=== PATIENT | female | born 1985 | race Caucasian/White ===

== ENCOUNTER 2024-04-03 21:57 | Emergency (ER) | payer OTHER, SELFPAY ==
--- NOTE | ~2024-04-03 | CT_ITS ---
EXAMINATION: CT abdomen pelvis wo con DATE: 04/03/2024 23:25 INDICATION: Left flank pain. TECHNIQUE: Computed tomography (CT) of the abdomen and pelvis was performed without intravenous contr ast. Automated exposure control and iterative reconstruction technique were employed. The dose-length product was 760.09 mGy-cm. COMPARISON: None FINDINGS: Lung bases are clear. Heart size is normal. No pericardial or pleural effusion. Liver, spleen, pancre as and bilateral adrenal glands are normal. Gradients likely layering sludge in the otherwise normal gallbladder. Right kidney and ureter are normal with no urolithiasis or hydronephrosis. There is a 3 mm obstructing stone at the left ureterovesicular junction which results in mild left hydroureteronep hrosis. No other urolithiasis. There are multiple phleboliths in the pelvis the largest measuring 506 mm located immediately posterior to the stomach the left ureterovesicular junction. Bladder is brad l. Uterus and bilateral adnexa are unremarkable. Bowels including the appendix are normal. No free in traperitoneal gas or fluid. No pathologically enlarged abdominal or pelvic lymphadenopathy. Bones are unremarkable. IMPRESSION: 1. Obstructing 3 mm stone at the left ureterovesicular junction with mild left hydroureteronephrosis. Reviewed, dictated and finalized at location A.
[2024-04-03 21:58] VITALS: BP 147/98; PULSE 121; RESP 18; TEMP 36; O2SAT 99
[2024-04-03 22:13] LABS: Basophils Percent Auto 0.3 % (0.2-1.2); Eosinophils Absolute Auto 0.2 K/mm3 (0-0.3); Eosinophils Percent Auto 1.3 % (0-4.4); Hematocrit 42.7 % (37.0-47.0); Hemoglobin 14.2 g/dL (12.0-15.0); Immature Granulocyte Absolute 0.05 K/mm3 (0.00-0.031); Immature Granulocyte Percent A 0.4 % (0-0.5); Lymphocytes Absolute Auto 4.53 K/mm3 (0.9-3.2); Mean Corpuscular HGB Conc 33.3 g/dl (32-36); Mean Corpuscular Hemoglobin 29.1 pg (26-34); Mean Corpuscular Volume 87.5 fl (80-100); Mean Platelet Volume 9.2 fl (7.4-10.4); Monocytes Absolute Auto 1.2 K/mm3 (0.1-0.6); Monocytes Percent Auto 9.3 % (2.6-8.5); Neutrophils Percent Auto 53.7 % (45.5-73.1); Platelet Count Result 339 k/mm3 (150-375); Red Blood Count 4.88 M/mm3 (4.2-5.4); Red Cell Distribution Width 13.8 % (11.5-14.5); White Blood Count 12.9 K/mm3 (4.5-10.0)
[2024-04-03 22:23] LABS: Alanine Aminotransferase 14 U/L (6-35); Albumin Level 4.6 g/dL (3.5-5.1); Alkaline Phosphatase 141 U/L (38-126); Anion Gap 13 mmol/L (4-12); Aspartate Amino Transferase 21 U/L (14-36); Bilirubin,Total 0.3 mg/dL (0.2-1.3); Blood Urea Nitrogen 14 mg/dL (7-17); Carbon Dioxide 14 mmol/L (22-30); Chloride 109 mmol/L (98-107); Estimated CRCL calculation 121 ml/min; Estimated Glomerular Filt Rate > 60; Glucose 165 mg/dL (65-110); Potassium 4.1 mmol/L (3.4-5.0); Sodium 136 mmol/L (137-145)
[2024-04-03] MEDS: MORPHINE SULFATE (*CRX) 4 MG/ML INJ IV PUSH (22:29)
[2024-04-03] MEDS: SODIUM CHLORIDE 0.9% IV 1,000 ML 999 ML IV CONT (22:29)
[2024-04-03] MEDS: ONDANSETRON INJ 4 MG/2 ML VIAL IV PUSH (22:29)
--- NOTE | 2024-04-03 22:35 | PC.NURSE ---
Patient keeps moving due to pain. Patient accidently pulled out her IV in her left AC. A new 18g IV in the right AC was placed.
--- NOTE | 2024-04-03 22:49 | PC.NURSE ---
Patient states that the morphine is not working and her pain is still 10/10. Notified EDP Dr. Anderson who VRBO 1mg Dilaudid IVP.
[2024-04-03] MEDS: HYDROmorphone HCL INJ (*CRX) 1 MG/ML SYR IV PUSH ×2 (22:51→23:51)
[2024-04-03 23:14] VITALS: BP 115/97; PULSE 80; RESP 16; O2SAT 100
--- NOTE | 2024-04-03 23:36 | PC.NURSE ---
Patient stated that her pain was 10/10 again and she was beginning to feel nauseous again. Notified EDP Dr. Anderson.
[2024-04-03] MEDS: METOCLOPRAMIDE HCL INJ 10 MG/2 ML VIAL IV PUSH (23:51)
[2024-04-03] MEDS: diphenhydrAMINE HCl INJ 50 MG/ML VIAL 25 MG IV PUSH (23:51)
[2024-04-04] MEDS: KETOROLAC 15 MG/ML VIAL (*BKC) IV PUSH (00:14)
--- NOTE | 2024-04-04 00:23 | ED.ABDPAIN ---
HPI - Abdominal Pain General Chief Complaint: Abdominal Pain Stated Complaint: kidney stone Time Seen by Provider: 04/03/24 22:22 History of Present Illness HPI narrative: pt here with n/v, L flank pain, sudden onset tonight. h/o kidney stones but not for 20 years. Related Data Allergies Allergy/AdvReac Type Severity Reaction Status Date / Time ibuprofen Allergy Itching Verified 04/03/24 22:28 Review of Systems Review of Systems: All systems reviewed & are unremarkable except as noted in HPI and below Exam Narrative: EXAMINATION OF ORGAN SYSTEMS/BODY AREAS: Constitutional: Vital signs per nursing GENERAL: Bent over, heaving into a bag, appears extremely uncomfortable HEAD: Normal with no signs of head trauma. EYES: EOMI, conjunctiva normal ENT: Hearing grossly intact LUNGS: Nonlabored breathing. HEART: [Regular rate and rhythm] ABD: Some left CVA tenderness EXT: Normal range of motion SKIN: [No rashes or lesions.] NEURO: [Alert and oriented x 3. No gross focal sensory or strength deficits.] Course Vital Signs Vital signs: Vital Signs Temperature 96.8 F L 04/03/24 21:58 Pulse Rate 121 H 04/03/24 21:58 Respiratory Rate 18 04/03/24 21:58 Blood Pressure 147/98 H 04/03/24 21:58 Pulse Oximetry 99 04/03/24 21:58 Oxygen Delivery Room Air 04/03/24 21:58 Temperature 96.8 F L 04/03/24 21:58 Pulse Rate 82 04/04/24 00:35 Respiratory Rate 16 04/04/24 00:35 Blood Pressure 143/114 H 04/04/24 00:35 Pulse Oximetry 99 04/04/24 00:35 Oxygen Delivery Room Air 04/03/24 21:58 MDM - Abdominal Pain MDM Narrative Medical decision making narrative: ED COURSE AND MEDICAL DECISION MAKIN-year-old female presenting to the emergency department for acute flank pain, symptoms are concerning for likely renal colic. Urinalysis is ordered. IV Morphine and 2 doses of Dilaudid are ordered given patient's persistent pain. IV fluids started. CT scan of the abdomen/pelvis is ordered. Labs are remarkable for: Bloody urine without signs of infection. CT scan of the abdomen/pelvis is reviewed by myself and interpreted by radiology: UVJ stone left 3 mm. On reevaluation, the patient still having pain. Since the stone is distal, I did give Toradol, and on re-evaluation patient states that she feels much better, pain is tolerable, I did offer admission for pain control and possible intervention at this time however patient states she feels she would rather go home at this time. Patient is strongly advised to return to the emergency department for any increasing pain not improving with medications, persistent nausea vomiting, fevers or chills or for any other concerns. Patient is comfortable with this plan and was discharged in fair condition. Lab Data 04/03/24 22:08 04/03/24 22:08 Labs: Lab Results 04/03/24 04/04/24 Range/Units 22:08 00:16 WBC 12.9 H (4.5-10.0) K/mm3 RBC 4.88 (4.2-5.4) M/mm3 Hgb 14.2 (12.0-15.0) g/dL Hct 42.7 (37.0-47.0) % MCV 87.5 (80-100) fl MCH 29.1 (26-34) pg MCHC 33.3 (32-36) g/dl RDW 13.8 (11.5-14.5) % Plt Count 339 (150-375) k/mm3 MPV 9.2 (7.4-10.4) fl Immature Gran % (Auto) 0.4 (0-0.5) % Neut % (Auto) 53.7 (45.5-73.1) % Lymph % (Auto) 35.0 (18.3-44.2) % [place] % (Auto) 9.3 H (2.6-8.5) % Eos % (Auto) 1.3 (0-4.4) % Baso % (Auto) 0.3 (0.2-1.2) % Lymph # (Auto) 4.53 H (0.9-3.2) K/mm3 [place] # (Auto) 1.2 H (0.1-0.6) K/mm3 Eos # (Auto) 0.2 (0-0.3) K/mm3 Baso # (Auto) 0.0 (0.0-0.1) K/mm3 Abs Immat Gran (auto) 0.05 H (0.00-0.031) K/mm3 Absolute Neuts (auto) 7.0 H (1.3-6.7) K/mm3 Absolute Nucleated RBC 0.000 (0.0-0.012) K/mm3 Nucleated RBC % 0.0 (0.0-0.2) % Sodium 136 L (137-145) mmol/L Potassium 4.1 (3.4-5.0) mmol/L Chloride 109 H (98-107) mmol/L Carbon Dioxide 14 L (22-30) mmol/L Anion Gap 13 H (4-12) mmol/L BUN 14 (7-
[2024-04-04 00:25] LABS: Appearance Urine Clear (Clear); Bacteria Urine None Seen /hpf; Bilirubin Urine Negative (Negative); Blood Urine 3+ (Negative); Color Urine Yellow (Yellow); Glucose Urine UA Negative (Negative); Ketones Urine Negative (Negative); Leukocyte Esterase Ur Negative LEU/UL (Negative); Nitrate Urine Negative (Negative); Non Pathogenic Casts 0-2; Protein Urine Negative (Negative); RBC Urine >100 /hpf (0-2); Squamous Epithelial Cell Urine None Seen /hpf (Few); Urobilinogen Urine 0.2 mg/dL (<2.0); WBC Urine 0-5 /hpf (0-3); pH Urine 6.5 (5.0-9.0)
[2024-04-04 00:27] LABS: Add Urine Microscopic? YES
[2024-04-04 00:35] VITALS: BP 143/114; PULSE 82; RESP 16; O2SAT 99
== END 2024-04-04 01:30 | disposition home or self-care (01) ==
PROVIDERS: Emergency Provider Emergency Medicine
DX: N20.0 Calculus of kidney (principal)
CPT/HCPCS: 36415; 74176; 80053; 81001; 85025; 96361; 96374; 96375; 96376; 99284; J1170; J1200; J1885; J2270; J2405; J2765; J7030